=== PATIENT | female | born 1985 | race Caucasian/White ===

== ENCOUNTER 2017-11-16 16:19 | Emergency (ER) | payer MEDICAID, BC ==
[2017-11-16] MEDS: ALBUTEROL 0.083% (NEB) 2.5 MG/3 ML AMP NEB (19:03)
[2017-11-16] MEDS: METHYLPREDNISOLONE 125 MG INJ IM (19:04)
== END 2017-11-16 19:58 | disposition home or self-care (01) ==
LOC: FTE 19:58
DX: O99.511 Diseases of the respiratory system complicating pregnancy, first trimester (principal); J20.9 Acute bronchitis, unspecified; Z3A.13 13 weeks gestation of pregnancy
CPT/HCPCS: 87400; 94664; 96372; 99284-25

== ENCOUNTER 2017-11-21 22:59 | Emergency (ER) | payer MEDICAID ==
[2017-11-22] MEDS: IPRATROPIUM (NEB) 0.5 MG/2.5 ML AMP NEB (02:48)
[2017-11-22] MEDS: ALBUTEROL 0.083% (NEB) 2.5 MG/3 ML AMP NEB (02:48)
== END 2017-11-22 03:23 | disposition home or self-care (01) ==
LOC: FTE 22:59
DX: J20.9 Acute bronchitis, unspecified (principal)
CPT/HCPCS: 94664; 99283-25

== ENCOUNTER → 2018-05-19 13:25 | Inpatient (IN) | payer MEDICAID ==
[2018-05-16 09:49] LABS: ADD MAN DIFF? NO
[2018-05-16 09:52] LABS: BASOPHILS % 0.1 % (0.0-2.0); EOSINOPHILS # 0.1 10^3/ul (0.0-0.5); EOSINOPHILS % 1.5 % (0.0-7.0); HEMATOCRIT 35.3 % (37.0-47.0); HEMOGLOBIN 11.3 g/dl (12.0-16.0); LYMPHOCYTES # 1.4 10^3/ul (0.8-2.9); LYMPHOCYTES % 16.9 % (15.0-51.0); MEAN CORPUSCULAR HEMOGLOBIN 25.6 pg (29.0-33.0); MEAN PLATELET VOLUME 10.5 fl (7.4-10.4); MONOCYTE # 0.6 10^3/ul (0.3-0.9); MONOCYTES % 6.8 % (0.0-11.0); NEUTROPHIL # 5.9 10^3/ul (1.6-7.5); NEUTROPHILS % 72.8 % (39.0-77.0); PLATELET COUNT 224 10^3/UL (140-415); RED BLOOD COUNT 4.41 10^6/ul (4.20-5.40); RED CELL DISTRIBUTION WIDTH 15.6 % (11.5-14.5)
[2018-05-16] MEDS: LACTATED RINGER'S 1,000 ML IV ×4 (09:57→19:00)
[2018-05-16 10:12] LABS: INR 0.95; PROTIME 12.8 Sec (11.9-14.9)
[2018-05-16 10:13] LABS: PARTIAL THROMBOPLASTIN TIME 28.9 Sec (25.0-35.0)
[2018-05-16 17:16] LABS: RAPID PLASMA REAGIN NONREACTIVE (NR)
[2018-05-16] MEDS: CEFAZOLIN 2 GM/50 ML (PMX) 50 ML IV (19:00)
[2018-05-16] MEDS: OXYTOCIN 30 UNITS/LR 500 ML IV ×2 (19:37→23:32)
[2018-05-16] MEDS: SENNA/DOCUSATE NA (8.6MG/50MG) TAB PO (21:00)
[2018-05-17] MEDS: LACTATED RINGER'S 1,000 ML IV ×2 (03:00→10:04)
[2018-05-17] MEDS: CEFAZOLIN 2 GM/50 ML (PMX) 50 ML IV ×2 (03:56→11:43)
[2018-05-17] MEDS: IBUPROFEN 600 MG TAB PO ×5 (06:00→23:24)
[2018-05-17 08:20] LABS: ADD MAN DIFF? NO
[2018-05-17 08:26] LABS: BASOPHILS % 0.1 % (0.0-2.0); EOSINOPHILS # 0.1 10^3/ul (0.0-0.5); EOSINOPHILS % 0.8 % (0.0-7.0); HEMATOCRIT 34.7 % (37.0-47.0); HEMOGLOBIN 10.7 g/dl (12.0-16.0); LYMPHOCYTES # 1.3 10^3/ul (0.8-2.9); LYMPHOCYTES % 12.3 % (15.0-51.0); MEAN CORPUSCULAR HEMOGLOBIN 24.4 pg (29.0-33.0); MEAN CORPUSCULAR HGB CONC 30.8 g/dl (32.0-37.0); MEAN CORPUSCULAR VOLUME 79.2 fl (82.0-101.0); MONOCYTE # 0.8 10^3/ul (0.3-0.9); MONOCYTES % 7.2 % (0.0-11.0); NEUTROPHIL # 8.5 10^3/ul (1.6-7.5); NEUTROPHILS % 78.9 % (39.0-77.0); PLATELET COUNT 190 10^3/UL (140-415); RED BLOOD COUNT 4.38 10^6/ul (4.20-5.40); RED CELL DISTRIBUTION WIDTH 15.9 % (11.5-14.5)
[2018-05-17 08:26] LABS: WHITE BLOOD COUNT 10.8 10^3/ul (4.8-10.8)
[2018-05-17] MEDS: SENNA/DOCUSATE NA (8.6MG/50MG) TAB PO ×2 (08:59→21:34)
[2018-05-17] MEDS: KETOROLAC 30 MG INJ IV (09:02)
[2018-05-17] MEDS: FERROUS SULFATE (EC) 325 MG TAB PO (21:34)
[2018-05-18] MEDS: IBUPROFEN 600 MG TAB PO ×3 (05:33→18:55)
[2018-05-18] MEDS: SENNA/DOCUSATE NA (8.6MG/50MG) TAB PO ×2 (10:37→20:31)
[2018-05-18] MEDS: FERROUS SULFATE (EC) 325 MG TAB PO ×2 (10:37→20:32)
[2018-05-18] MEDS: OXYCODONE/ACETAMINOPHEN (5/325) TAB PO (16:28)
[2018-05-19] MEDS: IBUPROFEN 600 MG TAB PO ×3 (00:07→12:00)
[2018-05-19] MEDS: FERROUS SULFATE (EC) 325 MG TAB PO (09:27)
[2018-05-19] MEDS: SENNA/DOCUSATE NA (8.6MG/50MG) TAB PO (09:27)
[~2018-05-19 13:25] MED LIST: BUPIVACAINE 0.75%/DEXT (SPINAL) 2 ML INJ; CARBOPROST 250 MCG INJ IM; CEFAZOLIN 2 GM/50 ML (PMX) 50 ML IV; DIPHENHYDRAMINE 50 MG INJ IV; FENTAnyl 50 MCG/ML VIAL; LANOLIN 7 GM TUBE TOP; METHYLERGONOVINE 0.2 MG INJ IM; MISOPROSTOL 200 MCG TAB PR; NALOXONE (0.4 MG/ML) INJ IV; ONDANSETRON 4 MG INJ; ONDANSETRON 4 MG INJ IV; OXYCODONE/ACETAMINOPHEN (5/325) TAB PO; OXYTOCIN 10 UNIT INJ; OXYTOCIN 30 UNITS/LR 500 ML BAG IV; OXYTOCIN 30 UNITS/LR 500 ML IV; PHENYLephrine (100 MCG/ML) 5ML SYG; morphine 2 MG INJ IV; morphine SULFATE/PF (10 MG/10 ML) INJ
== END | disposition home or self-care (01) | DRG 766 ==
PROVIDERS: Obstetrics & Gynecology
PROC: 10D00Z1 Extraction of Products of Conception, Low, Open Approach (ICD-10-PCS; principal; 2018-05-16 10:30)
PROC: 0UB70ZZ Excision of Bilateral Fallopian Tubes, Open Approach (ICD-10-PCS; 2018-05-16 10:30)
DX: O34.219 Maternal care for unspecified type scar from previous cesarean delivery (principal); Z3A.39 39 weeks gestation of pregnancy; Z37.0 Single live birth; Z30.2 Encounter for sterilization
CPT/HCPCS: 85025; 85610; 85730; 86592; 86850; 86900; 86901; 88302; 99464